=== PATIENT | female | born 1980 | race Caucasian/White ===

== ENCOUNTER 2019-03-25 11:04 | Emergency (ER) | payer OTHER ==
[~2019-03-25] VITALS: Ht 172.7 cm; Wt 100.2 kg
[2019-03-25 11:10] VITALS: BP 144/90
--- NOTE | 2019-03-25 11:33 | NUR ---
BRIE HANDED TO DR. WALTON. PER CORRINE AMIN FOR WAIT TO WAIT IN LOBBY.
--- NOTE | 2019-03-25 11:57 | NUR ---
ABMBULATED TO ER BED 8
[2019-03-25] MEDS ORDERED: KETOROLAC 30 MG/ML VIAL IVP ONE (12:00)
[2019-03-25] MEDS ORDERED: FAMOTIDINE 20 MG/2 ML VIAL IVP ONE (12:00)
--- NOTE | 2019-03-25 12:02 | NUR ---
PATIENT PRESENTS TO ED WITH C/O CONSTANT CHEST PAIN/PRESSURE X LAST NIGHT WITH LEFT ARM AND LEFT NECK PAIN. PAIN 5/10. PT WAS WATCHING TV WHEN PAIN STARTED. STATES NAUSEA, DIAPHORESIS. HX ANXIETY/PANIC ATTACKS, DENIES ANXIETY NOW. HX OF HYPERCHOLESTEROLEMIA, PANIC ATTACKS, ANXIETY, PATIENT ALSO STATES NOW HEADACHE OF 8/10 AT THIS TIME; VSS; PATIENT POSITIONED FOR COMFORT; HOB ELEVATED; BEDRAILS UP X2; BED DOWN. ER MD MADE AWARE OF PT STATUS.
[2019-03-25] MEDS ORDERED: ONDANSETRON 4 MG ODT PO ONE (12:35)
[2019-03-25] MEDS ORDERED: LORazepam 1 MG TAB PO ONE (12:35)
--- NOTE | 2019-03-25 13:00 | NUR ---
PT IS RESTING IN BED, SR ON , STATED STILL HAVING CHEST PAIN AND HEADACHE, MD AWARE.
[2019-03-25 13:02] LABS: BASOPHILS % (AUTO) 0.3 % (0.0-2.0); EOSINOPHILS # (AUTO) 0.1 K/uL (0-0.4); EOSINOPHILS % (AUTO) 1.1 % (0.0-4.0); HEMATOCRIT 40.1 % (36-48); HEMOGLOBIN 13.1 g/dL (12.0-16.0); LYMPHOCYTES # (AUTO) 1.7 K/uL (2.5-16.5); LYMPHOCYTES % (AUTO) 23.1 % (20.5-51.1); MEAN CORPUSCULAR HEMOGLOBIN 27 pg (27-31); MEAN CORPUSCULAR HGB CONC 33 g/dL (33-37); MEAN CORPUSCULAR VOLUME 83.8 fL (80-94); MONOCYTES # (AUTO) 0.6 K/uL (0.8-1.0); NEUTROPHILS % (AUTO) 67.5 % (42.2-75.2); PLATELET COUNT (AUTO) 328 K/uL (140-450); RED BLOOD CELL COUNT(AUTO) 4.79 MIL/uL (4.20-5.40); WHITE BLOOD COUNT (AUTO) 7.4 K/uL (4.8-10.8)
[2019-03-25 13:09] LABS: PROTHROMBIN TIME 9.1 secs (10.8-13.4)
[2019-03-25 13:12] LABS: BARBITURATE, URINE NEG. ng/ml (NEG <=200); BENZODIAZEPINE, URINE NEG. ng/mL (NEG <=200); CANNABINOID, URINE NEG. ng/mL (NEG <=50); COCAINE, URINE NEG. ng/mL (NEG <=300); OPIATE, URINE NEG. ng/mL (NEG <=2000); PHENCYCLIDINE SCREEN,URINE NEG. ng/mL (NEG <=25)
[2019-03-25 13:13] LABS: APPEARANCE,URINE CLEAR (CLEAR); BILIRUBIN,URINE NEGATIVE (NEGATIVE); BLOOD, URINE TRACE-I (NEGATIVE); COLOR,URINE YELLOW (YELLOW); LEUKOCYTE ESTERASE ,URINE 1+ (NEGATIVE); NITRITE, URINE NEGATIVE (NEGATIVE); UGLUCOSE NEGATIVE (NEGATIVE)
[2019-03-25 13:17] LABS: ALBUMIN 3.7 g/dL (3.4-5.0); ANION GAP 13.8 (8-16); CARBON DIOXIDE 29.1 mmol/L (21-32); POTASSIUM 3.9 mmol/L (3.5-5.1); TOTAL BILIRUBIN 0.9 mg/dL (0.0-1.0)
[2019-03-25 13:32] LABS: RBC,URINE NONE SEEN /HPF (0-5); WBC,URINE 0-5 /HPF (0-5)
--- NOTE | 2019-03-25 14:00 | NUR ---
NO S/S OF DISTRESS, RESTING IN BED, VSS, DENIES PAIN AT THIS TIME.
[2019-03-25 14:37] VITALS: BP 113/58
--- NOTE | 2019-03-25 14:37 | NUR ---
Patient discharged with v/s stable. Written and verbal after care instructions given and explained. Rx of VISTARIL given. Patient educated on indication of medication including possible reaction and side effects. All questions addressed prior to discharge. ID band removed. Patient advised to follow up with PMD.
== END 2019-03-25 14:58 | disposition home or self-care (01) ==
LOC: MED 11:04
DX: R07.89 Other chest pain (principal); R11.0 Nausea; R51 Headache
CPT/HCPCS: 36415; 71045; 80053; 80305; 81001; 81025; 83880; 84484; 85025; 85379; 85610; 85730; 87086; 96374; 96375; 99284; G0482; J1885; J3490; Q0092; Q0162; 93005